=== PATIENT | male | born 1945 | race Caucasian/White ===

== ENCOUNTER → 2024-10-14 10:53 | Outpatient (REF) | payer SELFPAY | LOC: RAD 10:53 | PROVIDERS: ATTENDING PHYSICIAN Internal Medicine Geriatric Medicine | DX: E78.2 Mixed hyperlipidemia (principal) | CPT/HCPCS: 75571 ==

== ENCOUNTER → 2025-06-23 14:05 | Outpatient (REF) | payer OTHER, SELFPAY | LOC: RAD 14:05 | PROVIDERS: ATTENDING PHYSICIAN Internal Medicine Geriatric Medicine | DX: N40.1 Benign prostatic hyperplasia with lower urinary tract symptoms (principal); E78.2 Mixed hyperlipidemia; E55.9 Vitamin D deficiency, unspecified; F32.9 Major depressive disorder, single episode, unspecified; Z13.89 Encounter for screening for other disorder; K21.9 Gastro-esophageal reflux disease without esophagitis; Z68.20 Body mass index [BMI] 20.0-20.9, adult; M53.3 Sacrococcygeal disorders, not elsewhere classified; M70.61 Trochanteric bursitis, right hip; M70.62 Trochanteric bursitis, left hip | CPT/HCPCS: 72114; 72200 ==

== ENCOUNTER → 2025-07-19 17:28 | Outpatient (REF) | payer OTHER, SELFPAY | LOC: MRI 17:28 | PROVIDERS: ATTENDING PHYSICIAN Internal Medicine Geriatric Medicine | DX: M47.817 Spondylosis without myelopathy or radiculopathy, lumbosacral region (principal) | CPT/HCPCS: 72158; A9575 ==